=== PATIENT | female | born 1980 | race American Indian/Alaskan Native ===

== ENCOUNTER 2021-01-11 21:35 | Emergency (ER) | payer SELFPAY ==
[2021-01-11 23:28] LABS: Basophils # (Auto) 0.1 K/mm3 (0.0-0.1); Basophils % (Auto) 1.1 % (0.0-1.8); Eosinophils # (Auto) 0.1 K/mm3 (0.0-0.4); Eosinophils % (Auto) 0.9 % (0.0-4.3); Hematocrit 39.5 % (30.3-42.9); Hemoglobin 13.2 gm/dl (10.1-14.3); Lymphocytes # (Auto) 2.3 K/mm3 (1.2-5.4); Mean Corpuscular HGB Conc 33 % (30-34); Mean Corpuscular Volume 89 fl (79-97); Monocytes # (Auto) 0.8 K/mm3 (0.0-0.8); Monocytes % (Auto) 8.9 % (0.0-7.3); Platelet Count 250 K/mm3 (140-440); Red Blood Count 4.46 M/mm3 (3.65-5.03); Red Cell Distribution Width 15.2 % (13.2-15.2)
[2021-01-11 23:44] LABS: Bacteria,Urine 2+ /HPF (Negative); Bilirubin,Urine NEG (Negative); Blood,Urine NEG (Negative); Color,Urine Yellow (Yellow); Mucus,Urine 1+ /HPF; RBC,Urine < 1.0 /HPF (0.0-6.0); Urobilinogen,Urine < 2.0 mg/dL (<2.0)
[2021-01-11 23:48] LABS: Alanine Aminotransferase 10 units/L (7-56); Albumin 4.8 g/dL (3.9-5); Blood Urea Nitrogen 9 mg/dL (7-17); Calcium 9.1 mg/dL (8.4-10.2); Hemolysis Index 22
[2021-01-11 23:49] LABS: BUN/Creatinine Ratio 13
--- NOTE | 2021-01-12 00:22 | Emergency Department Report ---
ED Abdominal Pain HPI - General Chief Complaint: Abdominal Pain Stated Complaint: CONSTIPATION/DIZZINESS Time Seen by Provider: 01/12/21 00:12 Source: patient Mode of arrival: Ambulatory Limitations: No Limitations - History of Present Illness Initial Comments: 40-year-old female presents emergency department complaining of having constipation that bowel movement for the last 2 weeks and has reports having very minimal to no bowel bowel movement since that time. Currently presents to the ED complaining of a stomach pressure. Reports no fever, chills, sweats, no hematuria, no dysuria, no nausea, no vomiting, no vaginal discharge has. Location: diffuse Radiation: none Migration to: no migration Severity: mild Quality: aching, dull Consistency: constant Improves With: nothing (Reports having yet to try anything [id number] any home memories on this condition) Worsens With: nothing Associated Symptoms: denies other symptoms. denies: vomiting, fever, hematemesis, syncope - Related Data Previous Rx's Medication Instructions Recorded Last Taken Type Lactulose [Cephulac] 30 gm PO Q6HR #450 ml 01/12/21 Unknown Rx Mineral Oil [Fleet Mineral Oil] 133 ml IN ONCE #1 bottle 01/12/21 Unknown Rx bisacodyL [Dulcolax suppos] 10 mg IN QDAY #14 supp.rect 01/12/21 Unknown Rx Allergies Allergy/AdvReac Type Severity Reaction Status Date / Time No Known Allergies Allergy Verified 01/11/21 22:56 ED Review of Systems ROS: Stated complaint: CONSTIPATION/DIZZINESS Other details as noted in HPI Comment: All other systems reviewed and negative ED Past Medical Hx - Past Medical History Previous Medical History?: No - Surgical History Past Surgical History?: Yes Hx Cholecystectomy: Yes - Social History Smoking Status: Current Every Day Smoker - Medications Home Medications: Home Medications Medication Instructions Recorded Confirmed Last Taken Type Lactulose [Cephulac] 30 gm PO Q6HR #450 ml 01/12/21 Unknown Rx Mineral Oil [Fleet Mineral Oil] 133 ml IN ONCE #1 bottle 01/12/21 Unknown Rx bisacodyL [Dulcolax suppos] 10 mg IN QDAY #14 supp.rect 01/12/21 Unknown Rx ED Physical Exam - General Limitations: No Limitations General appearance: alert, in no apparent distress - Head Head exam: Present: atraumatic, normocephalic - Eye Eye exam: Present: normal appearance, PERRL, EOMI Pupils: Present: normal accommodation - ENT ENT exam: Present: normal exam, normal orophraynx, mucous membranes moist - Neck Neck exam: Present: normal inspection - Respiratory Respiratory exam: Present: normal lung sounds bilaterally. Absent: respiratory distress - Cardiovascular Cardiovascular Exam: Present: regular rate, normal rhythm. Absent: systolic murmur, diastolic murmur, rubs, gallop - GI/Abdominal GI/Abdominal exam: Present: soft, normal bowel sounds. Absent: distended, tenderness, guarding, rebound, hyperactive bowel sounds, hypoactive bowel sounds, organomegaly, mass, bruit - Extremities Exam Extremities exam: Present: normal inspection - Back Exam Back exam: Present: normal inspection - Neurological Exam Neurological exam: Present: alert, oriented X3, CN II-XII intact, normal gait - Psychiatric Psychiatric exam: Present: normal affect, normal mood - Skin Skin exam: Present: warm, dry, intact, normal color. Absent: rash ED Course Vital Signs 01/11/21 01/12/21 22:52 01:56 Temperature 98.3 F Pulse Rate 112 H 96 H Respiratory 12 17 Rate Blood Pressure 145/80 O2 Sat by Pulse 98 99 Oximetry ED Medical Decision Making - Lab Data Result diagrams: 01/11/21 22:58 01/11/21 22:58 - Radiology Data Radiology results: report reviewed [address] [place] [id number] XRay Report Signed Patient: HALLIE ARCE MR#: [id number] [birth year] : 1980 Acct:[id number] Age/Sex: 40 / F ADM Date: 01/11/21 Loc: ED Attending Dr: Ordering Physician: AYO HINTON Date of Service: 01/12/21 Procedure(s): XR abd series w cxr 1V Accession Number(s): [id number] cc: AYO HINTON Fluoro Time In Minutes: ACUTE ABDOMEN SERIES INDICATION / CLINICAL INFORMATION: abd pain constipation. COMPARISON: None available. FINDINGS: Colon is indeed slightly distended and filled with dense appearing feces, consistent with constipation. No evidence of bowel obstruction. No free air. Accompanying chest radiograph shows no acute disease. Signer Name: Tyrel Iniguez MD Signed: 01/12/2021 12:57 AM Workstation Name: [id number] Transcribed By: TM Dictated By: Tyrel Iniguez MD Electronically Authenticated By: Tyrel Iniguez MD Signed Date/Time: 01/12/2156 DD/ TD/TT: Print - Medical Decision Making This patient presents with abdominal pain of unclear etiology. Their evaluation has not identified a emergent etiology for the abdominal pain. Specifically, given the very benign exam, normal laboratory studies, and lack of significant r isk factors, I have a very low suspicion for appendicitis, ischemic bowel, bowel perforation, or any other life threatening disease. I have discussed with the patient the level of uncertainty with undifferentiated abdominal pain and clearly explained the need to follow-up as noted on the discharge instructions, or return to the Emergency Department immediately if the pain worsens, develops fever, persistent and uncontrollable vomiting, or for any new symptoms or concerns. I discussed with the patient that this presentation today for abdominal pain could represent a significant risk for an acute abdominal process. Although the tests in the ED were essentially normal, there is still a possibility of a process such as appendicitis, diverticulitis, cholecystitis, ulcer, early bowel obstruction, mesenteric ischemia, kidney stone, or even kidney infection which could subsequently cause disability or . The patient understands that they must return within 24 hours for a recheck or see their physician within 24 hours for re-exam due to the possibility of significant surgical or medical process. Critical care attestation.: If time is entered above; I have spent that time in minutes in the direct care of this critically ill patient, excluding procedure time. ED Disposition Clinical Impression: Constipation Disposition: DC-01 TO HOME OR SELFCARE Is pt being admited?: No Does the pt Need Aspirin: No Condition: Stable Instructions: Constipation, Adult, [id number], Barium Enema, Mineral Oil rectal enema, Constipation, Adult, Probiotics, Abdominal Pain (ED) Prescriptions: Lactulose [Cephulac] 30 gm PO Q6HR #450 ml bisacodyL [Dulcolax suppos] 10 mg IN QDAY #14 supp.rect Mineral Oil [Fleet Mineral Oil] 133 ml IN ONCE #1 bottle Referrals: [facility] [Provider Group] - 3-5 Days [facility], [Primary Care Provider] - 3-5 Days
--- NOTE | 2021-01-12 01:01 | XRay Report ---
ACUTE ABDOMEN SERIES INDICATION / CLINICAL INFORMATION: abd pain constipation. COMPARISON: None available. FINDINGS: Colon is indeed slightly distended and filled with dense appearing feces, consistent with constipatio n. No evidence of bowel obstruction. No free air. Accompanying chest radiograph shows no acute disease. Signer Name: Tyrel Iniguez MD Signed: 01/12/2021 12:57 AM Workstation Name: [id number]
[2021-01-12 01:55] VITALS: BP 145/80
== END 2021-01-12 02:32 | disposition home or self-care (01) ==
LOC: ED 21:35
DX: K59.00 Constipation, unspecified (principal); F17.200 Nicotine dependence, unspecified, uncomplicated; Z90.49 Acquired absence of other specified parts of digestive tract; Z79.899 Other long term (current) drug therapy
CPT/HCPCS: 36415; 74022; 80053; 81001; 85025